=== PATIENT | male | born 1940 | race African-American/Black ===

== ENCOUNTER 2016-07-06 18:27 | Inpatient (IN) | payer SELFPAY ==
[~2016-07-06] VITALS: Ht 170.2 cm; Wt 86.2 kg
[2016-07-06 19:25] VITALS: BP 141/100
[2016-07-06] MEDS ORDERED: DiphenhydrAMINE 50mg/ml Inj IVP ONE ×3 (19:30→21:30)
[2016-07-06] MEDS ORDERED: Morphine Sulfate 2mg/ml Inj IVP ONE (19:30)
[2016-07-06] MEDS ORDERED: NKM (19:56)
[2016-07-06] MEDS ORDERED: Morphine Sulfate 4mg/ml Inj ONE (20:05)
[2016-07-06] MEDS ORDERED: Morphine Sulfate 4mg/ml Inj IVP ONE ×2 (20:15→21:30)
[2016-07-06 20:30] VITALS: BP 133/104
[2016-07-06 20:34] LABS: BASOPHILS % (AUTO) 1.9 % (0.0-2.0); EOSINOPHILS % (AUTO) 3.1 % (0.0-3.0); LYMPHOCYTES % (AUTO) 35.1 % (20.0-45.0); MEAN CORPUSCULAR HEMOGLOBIN 30.3 PG (27.0-31.0); MEAN CORPUSCULAR HGB CONC 34.5 G/DL (32.0-36.0); MEAN CORPUSCULAR VOLUME 88 FL (80-99); MEAN PLATELET VOLUME 6.2 FL (6.5-10.1); MONOCYTES % (AUTO) 3.1 % (1.0-10.0); NEUTROPHILS % (AUTO) 56.8 % (45.0-75.0); PLATELET COUNT 207 K/UL (150-450); RED BLOOD COUNT 4.61 M/UL (4.70-6.10); WHITE BLOOD COUNT 5.1 K/UL (4.8-10.8)
[2016-07-06 20:39] LABS: TROPONIN I < 0.30 ng/mL (<=0.30)
[2016-07-06 20:42] LABS: ALANINE AMINOTRANSFERASE 13 U/L (3-41); ALBUMIN/GLOBULIN RATIO 1.3 (1.0-2.7); ANION GAP 12 (5-15); ASPARTATE AMINO TRANSFERASE 16 U/L (5-40); CARBON DIOXIDE 28 mEQ/L (20-30); CHLORIDE 102 mEQ/L (98-107); CREATININE 1.1 mg/dL (0.7-1.2); HEMOLYSIS 3; POTASSIUM 3.7 mEQ/L (3.4-4.9); SODIUM 142 mEQ/L (135-145); TOTAL PROTEIN 6.2 g/dL (6.6-8.7)
[2016-07-06 20:53] LABS: CKMB < 1.5 ng/mL (< 6.7)
[2016-07-06] MEDS ORDERED: DuoNeb 0.5-3(2.5)mg/3ml neb HHN PRN (21:45)
[2016-07-06] MEDS ORDERED: Morphine Sulfate 2mg/ml Inj IVP PRN (21:45)
[2016-07-06] MEDS ORDERED: Enalaprilat 2.5mg/2ml Inj IV PRN (21:45)
[2016-07-06] MEDS ORDERED: Nitroglycerin Subl 0.4mg tab (Bottle Of 25) SL PRN (21:45)
[2016-07-06] MEDS ORDERED: Diltiazem 25mg/5ml IV PRN (21:45)
[2016-07-06] MEDS ORDERED: Miralax 17gm pkt ORAL PRN (21:45)
--- NOTE | 2016-07-06 22:39 | Emergency Room Report ---
History of Present Illness General Chief Complaint: Chest Pain Source: Patient Present Illness HPI 76-year-old male presents ED complaining of chest pain. States chest pain started today while at rest. Pain is midsternal, pressure-like, 8 out of 10. Nonradiating. Denies shortness of breath. Given aspirin and nitroglycerin by EMS with no resolution in pain. Patient states that he had FL years ago but is currently not taking medications. Does not have a PMD. Denies smoking or drug use. No other aggravating or relieving factors. Denies any other associated symptoms Allergies: Coded Allergies: IBUPROFEN (Verified Allergy, Severe, Rash, 07/06/16) KETOROLAC (Verified Allergy, Severe, Hives, 07/06/16) Uncoded Allergies: IV DYE (Allergy, Severe, Rash, 07/06/16) Patient History Past Medical History: FL, CAD Past Surgical History: none Pertinent Family History: none Social History: Denies: alcohol use, drug use, smoking Immunizations: UTD Reviewed Nursing Documentation: PMH: Agreed, PSxH: Agreed Nursing Documentation-PMH Past Medical History: No History, Except For Hx Cardiac Problems: Yes - FL 1969 and 1982 Review of Systems All Other Systems: negative except mentioned in HPI Physical Exam Vital Signs Date Time Temp Pulse Resp B/P Pulse Ox O2 Delivery O2 Flow Rate FiO2 07/06/16 18:22 98.8 92 18 143/93 98 Room Air Sp02 EP Interpretation: reviewed, normal General Appearance: no apparent distress, alert, GCS 15, non-toxic Head: normocephalic, atraumatic Eyes: bilateral eye PERRL, bilateral eye normal inspection ENT: hearing grossly normal, normal pharynx, no angioedema, normal voice Neck: full range of motion, supple/symm/no masses Respiratory: chest non-tender, lungs clear, normal breath sounds, speaking full sentences Cardiovascular #1: regular rate, rhythm, no edema Cardiovascular #2: 2+ carotid (R), 2+ carotid (L), 2+ radial (R), 2+ radial (L) , 2+ dorsalis pedis (R), 2+ dorsalis pedis (L) Gastrointestinal: normal bowel sounds, non tender, soft, non-distended, no guarding, no rebound Rectal: deferred Genitourinary: normal inspection, no CVA tenderness Musculoskeletal: back normal, gait/station normal, normal range of motion, non- tender Neurologic: alert, oriented x3, responsive, motor strength/tone normal, sensory intact, speech normal Psychiatric: judgement/insight normal, memory normal, mood/affect normal, no suicidal/homicidal ideation Reflexes: 3+ bicep (R), 3+ bicep (L), 3+ tricep (R), 3+ tricep (L), 3+ knee (R) , 3+ knee (L) Skin: normal color, no rash, warm/dry, well hydrated Lymphatic: no adenopathy Medical Decision Making Diagnostic Impression: Primary Impression: ACS (acute coronary syndrome) ER Course Hospital Course 76-year-old male presents ED complaining of chest pain Differential diagnoses include: FL/unstable angina, contusion, muscle strain, PTX, rib fracture Clinical course Patient placed on stretcher. on lace pinner. After initial history and physical I ordered labs, EKG, chest x-ray, morphine labs reviewed- no leukocytosis, hb/hct stable, electrolytes ok, trop negative EKG - NSR, no acute ischemic changes Chest x-ray- no acute process Case discussed with Dr. Neal and he agreed to accept the patient to his service for further care and support I. I feel this is a highly complex case requiring extensive working including EKG/Rhythm strip, Xray/CT/US, Blood/urine lab work, repeat exams while in ED, and administration of strong opiates/narcotics for pain control, admission to hospital or close patient follow up. Diagnosis - ACS admitted to telemetry in serious condition Labs Test 07/06/16 18:45 White Blood Count 5.1 K/UL (4.8-10.8) Red Blood Count 4.61 M/UL (4.70-6.10) Hemoglobin 14.0 G/DL (14.2-18.0) Hematocrit 40.6 % (42.0-52.0) Mean Corpuscular Volume 88 FL (80-99) Mean Corpuscular Hemoglobin 30.3 PG (27.0-31.0) Mean Corpuscular Hemoglobin Concent 34.5 G/DL (32.0-36.0) Red Cell Distribution Width 14.0 % (11.6-14.8) Platelet Count 207 K/UL (150-450) Mean Platelet Volume 6.2 FL (6.5-10.1) Neutrophils (%) (Auto) 56.8 % (45.0-75.0) Lymphocytes (%) (Auto) 35.1 % (20.0-45.0) Monocytes (%) (Auto) 3.1 % (1.0-10.0) Eosinophils (%) (Auto) 3.1 % (0.0-3.0) Basophils (%) (Auto) 1.9 % (0.0-2.0) Sodium Level 142 mEQ/L (135-145) Potassium Level 3.7 mEQ/L (3.4-4.9) Chloride Level 102 mEQ/L (98-107) Carbon Dioxide Level 28 mEQ/L (20-30) Anion Gap 12 (5-15) Blood Urea Nitrogen 12 mg/dL (7-23) Creatinine 1.1 mg/dL (0.7-1.2) Estimat Glomerular Filtration Rate mL/min (>60) Glucose Level 116 mg/dL (74-106) Calcium Level 10.0 mg/dL (8.6-10.2) Total Bilirubin 0.3 mg/dL (0.0-1.2) Aspartate Amino Transf (AST/SGOT) 16 U/L (5-40) Alanine Aminotransferase (ALT/SGPT) 13 U/L (3-41) Alkaline Phosphatase 82 U/L (40-129) Total Creatine Kinase 168 U/L (38-174) Creatine Kinase MB < 1.5 ng/mL (< 6.7) Creatine Kinase MB Relative Index Troponin I < 0.30 ng/mL (<=0.30) Pro-B-Type Natriuretic Peptide 15 pg/mL (0-450) Total Protein 6.2 g/dL (6.6-8.7) Albumin 3.6 g/dL (3.5-5.2) Globulin 2.6 g/dL Albumin/Globulin Ratio 1.3 (1.0-2.7) EKG Diagnostic Results Rate: normal Rhythm: NSR ST Segments: no acute changes ASA given to the pt in ED: No - given by ems Rhythm Strip Diag. Results EP Interpretation: yes Rhythm: NSR, no PVC's, no ectopy Chest X-Ray Diagnostic Results EP Interpretation: Yes Findings: no consolidation, no effusion, no pneumothorax, no acute cardiopulmonary disease Number of Views: 1 Last Vital Signs Date Time Temp Pulse Resp B/P Pulse Ox O2 Delivery O2 Flow Rate FiO2 07/06/16 20:55 98.8 07/06/16 20:30 73 13 133/104 100 Room Air Status: improved Disposition: ADMITTED INPATIENT Condition: Serious Referrals: NOT CHOSEN DENILSON/,REFERRING (PCP) DALTON AYALA M.D. Jul 06, 2016 22:39
[2016-07-06] MEDS: Heparin 5000 units/ml inj SUBQ SCH (23:15)
[2016-07-06] MEDS: Morphine Sulfate 2mg/ml Inj IVP PRN (23:51)
[2016-07-07] VITALS: BP 153/99
[2016-07-07 04:00] VITALS: BP 143/100
[2016-07-07] MEDS: Morphine Sulfate 2mg/ml Inj IVP PRN ×5 (04:03→20:49)
[2016-07-07] MEDS: DiphenhydrAMINE 50mg/ml Inj IVP PRN ×5 (04:03→21:05)
[2016-07-07 07:46] VITALS: BP 148/77
[2016-07-07 08:06] LABS: BASOPHILS % (AUTO) 1.4 % (0.0-2.0); EOSINOPHILS % (AUTO) 3.9 % (0.0-3.0); MEAN CORPUSCULAR HGB CONC 33.1 G/DL (32.0-36.0); MEAN CORPUSCULAR VOLUME 88 FL (80-99); MEAN PLATELET VOLUME 7.2 FL (6.5-10.1); MONOCYTES % (AUTO) 5.5 % (1.0-10.0); NEUTROPHILS % (AUTO) 49.3 % (45.0-75.0); PLATELET COUNT 221 K/UL (150-450); RED BLOOD COUNT 4.53 M/UL (4.70-6.10); WHITE BLOOD COUNT 6.2 K/UL (4.8-10.8)
[2016-07-07 08:07] LABS: CHOLESTEROL 108 mg/dL (< 200); CHOLESTEROL/HDL RATIO 1.9 (3.3-4.4); CRP QUANT < 0.3 mg/dL (< 0.5); HEMOLYSIS 0; LDL CHOLESTEROL (CALC.) 32 mg/dL (60-99)
[2016-07-07 08:09] LABS: TROPONIN I < 0.30 ng/mL (<=0.30)
[2016-07-07 08:13] LABS: PROTHROMBIN TIME 10.3 SEC (9.30-11.50)
[2016-07-07] MEDS: Heparin 5000 units/ml inj SUBQ SCH ×2 (08:14→20:46)
[2016-07-07 11:26] VITALS: BP 152/95
--- NOTE | 2016-07-07 13:13 | Cardiology Progress Note ---
Assessment/Plan Assessment/Plan persistent cp more than hours with neg trop htn report hs of mi and stent htn bp meds stress echo home if neg Objective Last 24 Hour Vital Signs Date Time Temp Pulse Resp B/P Pulse Ox O2 Delivery O2 Flow Rate FiO2 07/07/16 11:26 97.9 84 20 152/95 97 Room Air 07/07/16 08:00 78 07/07/16 07:46 97.3 92 20 148/77 98 Room Air 07/07/16 04:00 97.6 96 19 143/100 98 Room Air 07/07/16 04:00 92 07/07/16 00:00 98.2 93 21 153/99 95 Room Air 07/07/16 00:00 95 07/06/16 23:05 93 07/06/16 22:40 82 20 135/90 100 Room Air 07/06/16 22:30 98.8 07/06/16 20:55 98.8 07/06/16 20:30 73 13 133/104 100 Room Air 07/06/16 20:10 98.8 07/06/16 19:25 98.0 69 19 141/100 100 Room Air 07/06/16 19:25 80 19 Room Air 07/06/16 18:22 98.8 92 18 143/93 98 Room Air Intake and Output 07/06/16 07/07/16 19:00 07:00 Intake Total 800 ml Balance 800 ml Intake Oral 300 ml IV Total 500 ml Laboratory Tests Test 07/06/16 18:45 07/07/16 06:45 White Blood Count 5.1 K/UL (4.8-10.8) 6.2 K/UL (4.8-10.8) Red Blood Count 4.61 M/UL (4.70-6.10) L 4.53 M/UL (4.70-6.10) L Hemoglobin 14.0 G/DL (14.2-18.0) L 13.1 G/DL (14.2-18.0) L Hematocrit 40.6 % (42.0-52.0) L 39.7 % (42.0-52.0) L Mean Corpuscular Volume 88 FL (80-99) 88 FL (80-99) Mean Corpuscular Hemoglobin 30.3 PG (27.0-31.0) 29.0 PG (27.0-31.0) Mean Corpuscular Hemoglobin Concent 34.5 G/DL (32.0-36.0) 33.1 G/DL (32.0-36.0) Red Cell Distribution Width 14.0 % (11.6-14.8) 14.0 % (11.6-14.8) Platelet Count 207 K/UL (150-450) 221 K/UL (150-450) Mean Platelet Volume 6.2 FL (6.5-10.1) L 7.2 FL (6.5-10.1) Neutrophils (%) (Auto) 56.8 % (45.0-75.0) 49.3 % (45.0-75.0) Lymphocytes (%) (Auto) 35.1 % (20.0-45.0) 40.0 % (20.0-45.0) Monocytes (%) (Auto) 3.1 % (1.0-10.0) 5.5 % (1.0-10.0) Eosinophils (%) (Auto) 3.1 % (0.0-3.0) H 3.9 % (0.0-3.0) H Basophils (%) (Auto) 1.9 % (0.0-2.0) 1.4 % (0.0-2.0) Sodium Level 142 mEQ/L (135-145) Potassium Level 3.7 mEQ/L (3.4-4.9) Chloride Level 102 mEQ/L (98-107) Carbon Dioxide Level 28 mEQ/L (20-30) Anion Gap 12 (5-15) Blood Urea Nitrogen 12 mg/dL (7-23) Creatinine 1.1 mg/dL (0.7-1.2) Estimat Glomerular Filtration Rate mL/min (>60) Glucose Level 116 mg/dL (74-106) H Calcium Level 10.0 mg/dL (8.6-10.2) Total Bilirubin 0.3 mg/dL (0.0-1.2) Aspartate Amino Transf (AST/SGOT) 16 U/L (5-40) Alanine Aminotransferase (ALT/SGPT) 13 U/L (3-41) Alkaline Phosphatase 82 U/L (40-129) Total Creatine Kinase 168 U/L (38-174) Creatine Kinase MB < 1.5 ng/mL (< 6.7) Creatine Kinase MB Relative Index Troponin I < 0.30 ng/mL (<=0.30) < 0.30 ng/mL (<=0.30) Pro-B-Type Natriuretic Peptide 15 pg/mL (0-450) Total Protein 6.2 g/dL (6.6-8.7) L Albumin 3.6 g/dL (3.5-5.2) Globulin 2.6 g/dL Albumin/Globulin Ratio 1.3 (1.0-2.7) Prothrombin Time 10.3 SEC (9.30-11.50) Prothromb Time International Ratio 1.0 (0.9-1.1) Activated Partial Thromboplast Time 24 SEC (23-33) C-Reactive Protein, Quantitative < 0.3 mg/dL (< 0.5) Triglycerides Level 97 mg/dL (< 150) Cholesterol Level 108 mg/dL (< 200) LDL Cholesterol 32 mg/dL (60-99) L HDL Cholesterol 57 mg/dL (> 60) Cholesterol/HDL Ratio 1.9 (3.3-4.4) L Thyroid Stimulating Hormone (TSH) 0.840 uIU/mL (0.300-4.500) LIBORIO CHRISTIAN Jul 07, 2016 13:13
--- NOTE | 2016-07-07 13:27 | History and Physical ---
History of Present Illness General Date patient seen: Jul 07, 2016 Reason for Hospitalization: Chest Pain Present Illness HPI 76-year-old male with hx of CAD, NE in the past presented to ED complaining of chest pain started yesterday while at rest. Pain is midsternal, pressure- like, 8 out of 10. Nonradiating. Denies shortness of breath. Given aspirin and nitroglycerin by EMS with no resolution in pain. He is admitted to telemetry to rule out ACS. Allergies: Coded Allergies: IBUPROFEN (Verified Allergy, Severe, Rash, 07/06/16) KETOROLAC (Verified Allergy, Severe, Hives, 07/06/16) Uncoded Allergies: IV DYE (Allergy, Severe, Rash, 07/06/16) Medication History Scheduled No Known Medications* (NKM - No Known Medications*), 0 ., (Reported) Patient History Healthcare decision maker Resuscitation status Full Code Advanced Directive on File Past Medical/Surgical History Past Medical/Surgical History: (1) CAD (coronary artery disease) Review of Systems All Other Systems: negative except mentioned in HPI Physical Exam General Appearance: WD/WN Lines, tubes and drains: peripheral Neck: non-tender, normal alignment Respiratory/Chest: chest wall non-tender, lungs clear Cardiovascular/Chest: normal peripheral pulses Last 24 Hour Vital Signs Date Time Temp Pulse Resp B/P Pulse Ox O2 Delivery O2 Flow Rate FiO2 07/07/16 11:26 97.9 84 20 152/95 97 Room Air 07/07/16 08:00 78 07/07/16 07:46 97.3 92 20 148/77 98 Room Air 07/07/16 04:00 97.6 96 19 143/100 98 Room Air 07/07/16 04:00 92 07/07/16 00:00 98.2 93 21 153/99 95 Room Air 07/07/16 00:00 95 07/06/16 23:05 93 07/06/16 22:40 82 20 135/90 100 Room Air 07/06/16 22:30 98.8 07/06/16 20:55 98.8 07/06/16 20:30 73 13 133/104 100 Room Air 07/06/16 20:10 98.8 07/06/16 19:25 98.0 69 19 141/100 100 Room Air 07/06/16 19:25 80 19 Room Air 07/06/16 18:22 98.8 92 18 143/93 98 Room Air Intake and Output 07/06/16 07/07/16 19:00 07:00 Intake Total 800 ml Balance 800 ml Intake Oral 300 ml IV Total 500 ml Laboratory Tests Test 07/06/16 18:45 07/07/16 06:45 White Blood Count 5.1 K/UL (4.8-10.8) 6.2 K/UL (4.8-10.8) Red Blood Count 4.61 M/UL (4.70-6.10) L 4.53 M/UL (4.70-6.10) L Hemoglobin 14.0 G/DL (14.2-18.0) L 13.1 G/DL (14.2-18.0) L Hematocrit 40.6 % (42.0-52.0) L 39.7 % (42.0-52.0) L Mean Corpuscular Volume 88 FL (80-99) 88 FL (80-99) Mean Corpuscular Hemoglobin 30.3 PG (27.0-31.0) 29.0 PG (27.0-31.0) Mean Corpuscular Hemoglobin Concent 34.5 G/DL (32.0-36.0) 33.1 G/DL (32.0-36.0) Red Cell Distribution Width 14.0 % (11.6-14.8) 14.0 % (11.6-14.8) Platelet Count 207 K/UL (150-450) 221 K/UL (150-450) Mean Platelet Volume 6.2 FL (6.5-10.1) L 7.2 FL (6.5-10.1) Neutrophils (%) (Auto) 56.8 % (45.0-75.0) 49.3 % (45.0-75.0) Lymphocytes (%) (Auto) 35.1 % (20.0-45.0) 40.0 % (20.0-45.0) Monocytes (%) (Auto) 3.1 % (1.0-10.0) 5.5 % (1.0-10.0) Eosinophils (%) (Auto) 3.1 % (0.0-3.0) H 3.9 % (0.0-3.0) H Basophils (%) (Auto) 1.9 % (0.0-2.0) 1.4 % (0.0-2.0) Sodium Level 142 mEQ/L (135-145) Potassium Level 3.7 mEQ/L (3.4-4.9) Chloride Level 102 mEQ/L (98-107) Carbon Dioxide Level 28 mEQ/L (20-30) Anion Gap 12 (5-15) Blood Urea Nitrogen 12 mg/dL (7-23) Creatinine 1.1 mg/dL (0.7-1.2) Estimat Glomerular Filtration Rate mL/min (>60) Glucose Level 116 mg/dL (74-106) H Calcium Level 10.0 mg/dL (8.6-10.2) Total Bilirubin 0.3 mg/dL (0.0-1.2) Aspartate Amino Transf (AST/SGOT) 16 U/L (5-40) Alanine Aminotransferase (ALT/SGPT) 13 U/L (3-41) Alkaline Phosphatase 82 U/L (40-129) Total Creatine Kinase 168 U/L (38-174) Creatine Kinase MB < 1.5 ng/mL (< 6.7) Creatine Kinase MB Relative Index Troponin I < 0.30 ng/mL (<=0.30) < 0.30 ng/mL (<=0.30) Pro-B-Type Natriuretic Peptide 15 pg/mL (0-450) Total Protein 6.2 g/dL (6.6-8.7) L Albumin 3.6 g/dL (3.5-5.2) Globulin 2.6 g/dL Albumin/Globulin Ratio 1.3 (1.0-2.7) Prothrombin Time 10.3 SEC (9.30-11.50) Prothromb Time International Ratio 1.0 (0.9-1.1) Activated Partial Thromboplast Time 24 SEC (23-33) C-Reactive Protein, Quantitative < 0.3 mg/dL (< 0.5) Triglycerides Level 97 mg/dL (< 150) Cholesterol Level 108 mg/dL (< 200) LDL Cholesterol 32 mg/dL (60-99) L HDL Cholesterol 57 mg/dL (> 60) Cholesterol/HDL Ratio 1.9 (3.3-4.4) L Thyroid Stimulating Hormone (TSH) 0.840 uIU/mL (0.300-4.500) Height (Feet): 5 Height (Inches): 7.00 Weight (Pounds): 190 Medications Current Medications Medications (Trade) Dose Ordered Sig/Nury Route PRN Reason Start Time Stop Time Status Last Admin Dose Admin Acetaminophen (Tylenol) 650 mg Q4H PRN ORAL FEVER 07/06/16 21:45 08/05/16 21:44 Albuterol/ Ipratropium (DuoNeb 0.5-3(2.5)mg/3ml) 3 ml Q4H PRN HHN Shortness of Breath 07/06/16 21:45 07/11/16 21:44 Amlodipine Besylate (Norvasc) 5 mg DAILY ORAL 07/07/16 13:15 08/06/16 13:14 UNV Diltiazem HCl (Cardizem) 10 mg EVERY HOUR PRN IV heart rate more than 120, 07/06/16 21:45 08/05/16 21:44 Diphenhydramine HCl (Benadryl) 25 mg Q4H PRN IVP Itching 07/06/16 23:30 08/05/16 23:29 07/07/16 12:19 Enalaprilat (Vasotec) 2.5 mg Q6H PRN IV sbp more than 160 07/06/16 21:45 08/05/16 21:44 Heparin Sodium (Porcine) (Heparin 5000 units/ml) 5,000 units EVERY 12 HOURS SUBQ 07/06/16 23:00 08/05/16 22:59 07/07/16 08:14 Morphine Sulfate (Morphine Sulfate) 4 mg Q4H PRN IVP severe Pain (Pain Scale 7-10) 07/06/16 23:36 07/13/16 23:35 07/07/16 12:19 Nitroglycerin (Ntg) 0.4 mg Every 5 Minutes PRN SL Prn Chest Pain 07/06/16 21:45 08/05/16 21:44 Ondansetron HCl (Zofran) 4 mg Q6H PRN IVP Nausea & Vomiting 07/06/16 21:45 08/05/16 21:44 Pantoprazole (Protonix) 40 mg DAILY ORAL 07/07/16 09:00 08/06/16 08:59 Polyethylene Glycol (Miralax) 17 gm DAILYPRN PRN ORAL Constipation 07/06/16 21:45 08/05/16 21:44 Temazepam (Restoril) 15 mg HSPRN PRN ORAL Insomnia 07/06/16 21:45 07/13/16 21:44 Assessment/Plan Problem List: (1) ACS (acute coronary syndrome) ICD Codes: I24.9 - Acute ischemic heart disease, unspecified SNOMED: 886831568 (2) CAD (coronary artery disease) ICD Codes: I25.10 - Atherosclerotic heart disease of [place] coronary artery without angina pectoris SNOMED: 99258192 (3) Costochondritis ICD Codes: M94.0 - Chondrocostal junction syndrome [[place]] SNOMED: 84230774 (4) GERD (gastroesophageal reflux disease) ICD Codes: K21.9 - Gastro-esophageal reflux disease without esophagitis SNOMED: 761345644 Assessment/Plan serial ekg, troponin, echo stress study. GO BONILLA Jul 07, 2016 13:27
--- NOTE | 2016-07-07 13:52 | Diagnostic Imaging Report ---
Indication: Chest pain Technique: One view of the chest Comparison: none Findings: No acute infiltrates, effusions, or congestion. Tortuous calcified aorta. Normal heart size. Upper mediastinum unremarkable. Impression: No acute process.
[2016-07-07 15:21] VITALS: BP 154/101
[2016-07-07 20:00] VITALS: BP 145/101
--- NOTE | 2016-07-07 21:38 | Consultation ---
DATE OF CONSULTATION: 07/07/2016 CARDIOLOGY CONSULTATION CONSULTING PHYSICIAN: Pierre Houston M.D. REFERRING PHYSICIAN: Wendy Neal M.D. REASON FOR REFERRAL: Chest pain. HISTORY OF PRESENT ILLNESS: This is a 76-year-old gentleman, who presented to the hospital because of chest pain. He tells me that he has been himself that he started having chest pain approximately two months ago intermittently when he was just picking up some stuff on floor and things of that sort. However since yesterday afternoon, he has had persistent chest pain and presented to the hospital. He thinks it is similar to the pain that he has had on prior occasions when he had the two prior heart attacks, the last one being in 1982 for which he ended up getting a stent. He has not been hospitalized or he has not been evaluated anywhere for the past few years. He has had some dyspnea on exertion. There is a two-pillow usage. No dizziness or lightheadedness. No heart pounding or palpitations. The pain has been persistent since yesterday, although morphine makes him a little bit better, but does not take it away completely and the pain continues to persist. He states he has not been hospitalized in any other hospitals for this evaluation either. PAST MEDICAL HISTORY: Positive for high blood pressure and high cholesterol and heart attacks. MEDICATIONS: His medications at home are unknown as he has not been taking anything according to himself. He has not seen a physician from number of years. ALLERGIES: He is allergic to ibuprofen, intravenous dye, "contrast dye," and Ketoralac. SOCIAL HISTORY: He smokes two packs per day. He does not drink or use drugs he says. PHYSICAL EXAMINATION: GENERAL: Shows to be elderly gentleman, in no apparent respiratory distress. Initially, he was walking from the bathroom to the bed, does not appear to be in any kind of respiratory distress. VITAL SIGNS: His vital signs have been anywhere between 148/77 to 153/99. NECK: Supple. No jugular venous distention. LUNGS: Clear to auscultation and percussion. CARDIAC: S1 is normal. S2 is normal. Regular rate and rhythm. No heaves, thrills, gallops, or rubs are noted. ABDOMEN: Soft and nontender. Positive bowel sounds. EXTREMITIES: There is no clubbing, cyanosis, nor edema. NEUROLOGIC: He is awake, alert, and responsive. LABORATORY VALUES: White count of 6.3, hemoglobin 13.1, and a platelet count of 221,000. His troponins on separate occasions are negative today and yesterday. Sodium 140, potassium 3.7, chloride 102, bicarbonate 28, BUN 12, creatinine 1.1, and glucose of 116. Albumin of 3.6. Total cholesterol of 108 with a LDL of 32 and HDL of 57. TSH of 0.84. Coags, INR 1.0 and PTT of 24. ASSESSMENT: 1. Reported chest pain with no evidence of myonecrosis despite approximately 18 hours of chest pain. 2. Reported history of coronary disease and stent placement. 3. Multiple drug intolerances. PLAN: Dr. Neal, this patient was seen in cardiac consultation. The patient's EKG are not significant abnormality suggesting ischemic burden. The patient does not have any cardiac enzyme abnormalities despite 18 hours of chest pain. He has not identified any relieving or exacerbating factors except for some improvement in the pain because of intravenous morphine administration, which he does not like and wants to change to other medications. Unlikely that the pain is ischemic in origin, however because of prior history of coronary disease, he should undergo a stress testing. An echocardiogram has been ordered. If the results of that are normal, the patient may be discharged home. Pierre Houston M.D. DR: JOHNSON JOB#: [id number] CC:
[2016-07-08] VITALS: BP 142/100
[2016-07-08] MEDS: Morphine Sulfate 2mg/ml Inj IVP PRN (02:19)
[2016-07-08] MEDS: DiphenhydrAMINE 50mg/ml Inj IVP PRN ×5 (02:23→20:55)
[2016-07-08 08:00] VITALS: BP 140/106
[2016-07-08] MEDS: HYDROmorphone 1mg/ml Carpuject IVP PRN ×4 (08:08→20:55)
[2016-07-08] MEDS: Heparin 5000 units/ml inj SUBQ SCH ×2 (08:08→21:00)
[2016-07-08 09:10] LABS: TROPONIN I < 0.30 ng/mL (<=0.30)
--- NOTE | 2016-07-08 09:19 | Cardiology Report ---
APPROVED REPORT EXAM: Two-dimensional and M-mode echocardiogram with Doppler and color Doppler. INDICATION Left ventricular function Technically difficult study due to poor acoustic windows. Normal left ventricular chamber size, systolic function and wall motion. Left ventricular ejection fraction estimated to be 60-65 %. Mild left ventricular hypertrophy. No evidence of pericardial fat or effusion. All other cardiac chamber sizes are within normal limits. Focal aortic valve sclerosis with adequate cusp excursion Thickened mitral valve leaflets with normal excursion. Mild mitral annulus and aortic root calcification. Pulmonic valve not well visualized. Normal tricuspid valve structure. IVC is normal in size with physiologic collapse. A color flow and spectral Doppler study was performed and revealed: No aortic regurgitation. No mitral regurgitation. Left ventricular diastolic dysfunction grade 1. No tricuspid regurgitation.
[2016-07-08 12:00] VITALS: BP 139/103
--- NOTE | 2016-07-08 12:54 | Pulmonology Progress Note ---
Assessment/Plan Problems: (1) ACS (acute coronary syndrome) (2) CAD (coronary artery disease) (3) Costochondritis (4) GERD (gastroesophageal reflux disease) Assessment/Plan for stress testing today monitor bp symptomatic treatment Subjective ROS Limited/Unobtainable: No Interval Events: for stress test today Allergies: Coded Allergies: IBUPROFEN (Verified Allergy, Severe, Rash, 07/06/16) KETOROLAC (Verified Allergy, Severe, Hives, 07/06/16) Uncoded Allergies: IV DYE (Allergy, Severe, Rash, 07/06/16) Objective Last 24 Hour Vital Signs Date Time Temp Pulse Resp B/P Pulse Ox O2 Delivery O2 Flow Rate FiO2 07/08/16 08:59 90 140/106 07/08/16 08:00 98.2 90 20 140/106 96 Room Air 07/08/16 07:55 81 18 Room Air 07/08/16 00:27 85 07/08/16 00:00 97.5 89 18 142/100 97 Room Air 07/07/16 20:20 102 18 Room Air 07/07/16 20:00 98.1 95 18 145/101 98 Room Air 07/07/16 20:00 96 07/07/16 16:00 99 07/07/16 15:21 97.7 102 20 154/101 98 Room Air 07/07/16 14:10 84 152/95 Intake and Output 07/07/16 07/08/16 19:00 07:00 Intake Total 910 ml Balance 910 ml Intake Oral 910 ml # Voids 5 1 # Bowel Movements 2 General Appearance: WD/WN HEENT: normocephalic, atraumatic Respiratory/Chest: chest wall non-tender, lungs clear Cardiovascular: normal peripheral pulses, normal rate Abdomen: normal bowel sounds, soft, non tender Extremities: no cyanosis 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 Laboratory Tests 07/08/16 08:30: Troponin I < 0.30 Current Medications Medications (Trade) Dose Ordered Sig/Nury Route PRN Reason Start Time Stop Time Status Last Admin Dose Admin Acetaminophen (Tylenol) 650 mg Q4H PRN ORAL FEVER 07/06/16 21:45 08/05/16 21:44 Albuterol/ Ipratropium (DuoNeb 0.5-3(2.5)mg/3ml) 3 ml Q4H PRN HHN Shortness of Breath 07/06/16 21:45 07/11/16 21:44 Amlodipine Besylate (Norvasc) 5 mg DAILY ORAL 07/07/16 14:00 08/06/16 13:59 07/08/16 08:59 Diltiazem HCl (Cardizem) 10 mg EVERY HOUR PRN IV heart rate more than 120, 07/06/16 21:45 08/05/16 21:44 Diphenhydramine HCl (Benadryl) 25 mg Q4H PRN IVP Itching 07/06/16 23:30 08/05/16 23:29 07/08/16 12:14 Enalaprilat (Vasotec) 2.5 mg Q6H PRN IV sbp more than 160 07/06/16 21:45 08/05/16 21:44 Heparin Sodium (Porcine) (Heparin 5000 units/ml) 5,000 units EVERY 12 HOURS SUBQ 07/06/16 23:00 08/05/16 22:59 07/08/16 08:08 Hydromorphone HCl (Dilaudid) 1 mg Q3H PRN IVP For Pain 07/08/16 05:45 07/15/16 05:44 07/08/16 12:14 Nitroglycerin (Ntg) 0.4 mg Every 5 Minutes PRN SL Prn Chest Pain 07/06/16 21:45 08/05/16 21:44 Ondansetron HCl (Zofran) 4 mg Q6H PRN IVP Nausea & Vomiting 07/06/16 21:45 08/05/16 21:44 Pantoprazole (Protonix) 40 mg DAILY ORAL 07/07/16 09:00 08/06/16 08:59 07/08/16 08:07 Polyethylene Glycol (Miralax) 17 gm DAILYPRN PRN ORAL Constipation 07/06/16 21:45 08/05/16 21:44 Temazepam (Restoril) 15 mg HSPRN PRN ORAL Insomnia 07/06/16 21:45 07/13/16 21:44 GO BONILLA Jul 08, 2016 12:54
[2016-07-08 16:00] VITALS: BP 147/93
[2016-07-08 20:00] VITALS: BP 131/92
--- NOTE | 2016-07-08 20:10 | Cardiology Progress Note ---
Assessment/Plan Assessment/Plan persistent cp more than hours with neg trop unconfirmed report hs of mi and stent htn bp meds increse doese he co pain gettign worse yet is walkign in halls !!!!! all trop neg was not able to complete test hodan order adenosine cardiolite stress test for tomorrow if he refused or is not able to perform would dc home and have him fu with his md he is asking for more diluadid i doubt hsi pain is cardiac ischemic pain Subjective Cardiovascular: Denies: chest pain - gets worse with waking Respiratory: Denies: shortness of breath Gastrointestinal/Abdominal: Denies: abdominal pain Genitourinary: Denies: burning Subjective want to have dilaudid increased to every 3 hours ! Objective Last 24 Hour Vital Signs Date Time Temp Pulse Resp B/P Pulse Ox O2 Delivery O2 Flow Rate FiO2 07/08/16 19:32 109 18 Room Air 07/08/16 16:00 98.2 91 20 147/93 96 Room Air 07/08/16 16:00 100 07/08/16 12:00 98.2 67 16 139/103 97 Room Air 07/08/16 12:00 90 07/08/16 08:59 90 140/106 07/08/16 08:00 82 07/08/16 08:00 98.2 90 20 140/106 96 Room Air 07/08/16 07:55 81 18 Room Air 07/08/16 00:27 85 07/08/16 00:00 97.5 89 18 142/100 97 Room Air 07/07/16 20:20 102 18 Room Air General Appearance: no apparent distress - walkin in halls !!!! Neck: no JVD Cardiovascular: normal rate, regular rhythm Respiratory/Chest: lungs clear, normal breath sounds Abdomen: normal bowel sounds, non tender, soft Extremities: no swelling Intake and Output 07/07/16 07/08/16 19:00 07:00 Intake Total 910 ml Balance 910 ml Intake Oral 910 ml # Voids 5 1 # Bowel Movements 2 Laboratory Tests Test 07/08/16 08:30 Troponin I < 0.30 ng/mL (<=0.30) LIBORIO CHRISTIAN Jul 08, 2016 20:10
[2016-07-09] VITALS: BP 150/88
[2016-07-09] MEDS: DiphenhydrAMINE 50mg/ml Inj IVP PRN ×3 (01:28→11:30)
[2016-07-09] MEDS: HYDROmorphone 1mg/ml Carpuject IVP PRN ×3 (01:29→11:28)
[2016-07-09 04:30] VITALS: BP 148/108
[2016-07-09 07:53] VITALS: BP 145/102
[2016-07-09] MEDS: Heparin 5000 units/ml inj SUBQ SCH (09:00)
[2016-07-09] MEDS ORDERED: Tubing IV Secondary IV ONE (09:47)
[2016-07-09 11:16] VITALS: BP 140/90
--- NOTE | 2016-07-09 12:58 | Pulmonology Progress Note ---
Assessment/Plan Problems: (1) ACS (acute coronary syndrome) (2) CAD (coronary artery disease) (3) Costochondritis (4) GERD (gastroesophageal reflux disease) Assessment/Plan for stress testing was interrupted yesterday. and today he refused ok to dc home with f/u with primary physician Subjective Constitutional: Reports: no symptoms HEENT: Repors: no symptoms Respiratory: Reports: no symptoms Allergies: Coded Allergies: IBUPROFEN (Verified Allergy, Severe, Rash, 07/06/16) KETOROLAC (Verified Allergy, Severe, Hives, 07/06/16) Uncoded Allergies: IV DYE (Allergy, Severe, Rash, 07/06/16) Objective Last 24 Hour Vital Signs Date Time Temp Pulse Resp B/P Pulse Ox O2 Delivery O2 Flow Rate FiO2 07/09/16 11:16 97.9 102 20 140/90 98 Room Air 07/09/16 08:59 95 145/102 07/09/16 08:24 95 18 Room Air 07/09/16 07:53 97.7 95 20 145/102 96 Room Air 07/09/16 04:30 97.9 100 20 148/108 98 Room Air 07/09/16 04:00 95 07/09/16 00:00 87 07/09/16 00:00 97.0 99 20 150/88 99 Room Air 07/08/16 20:55 109 147/93 07/08/16 20:00 97.9 100 20 131/92 98 Room Air 07/08/16 20:00 110 07/08/16 19:32 109 18 Room Air 07/08/16 16:00 98.2 91 20 147/93 96 Room Air 07/08/16 16:00 100 Intake and Output 07/08/16 07/09/16 19:00 07:00 Intake Total 640 ml Balance 640 ml Intake Oral 640 ml # Voids 2 1 General Appearance: WD/WN Respiratory/Chest: chest wall non-tender, normal breath sounds Cardiovascular: normal peripheral pulses, normal rate Abdomen: normal bowel sounds, soft, non tender Genitourinary: normal external genitalia Extremities: no clubbing Skin: no rash Current Medications Medications (Trade) Dose Ordered Sig/Nury Route PRN Reason Start Time Stop Time Status Last Admin Dose Admin Acetaminophen (Tylenol) 650 mg Q4H PRN ORAL FEVER 07/06/16 21:45 08/05/16 21:44 Albuterol/ Ipratropium (DuoNeb 0.5-3(2.5)mg/3ml) 3 ml Q4H PRN HHN Shortness of Breath 07/06/16 21:45 07/11/16 21:44 Amlodipine Besylate (Norvasc) 5 mg BID ORAL 07/09/16 09:00 08/08/16 08:59 07/09/16 08:59 Diltiazem HCl (Cardizem) 10 mg EVERY HOUR PRN IV heart rate more than 120, 07/06/16 21:45 08/05/16 21:44 Diphenhydramine HCl (Benadryl) 25 mg Q4H PRN IVP Itching 07/06/16 23:30 08/05/16 23:29 07/09/16 11:30 Enalaprilat (Vasotec) 2.5 mg Q6H PRN IV sbp more than 160 07/06/16 21:45 08/05/16 21:44 Heparin Sodium (Porcine) (Heparin 5000 units/ml) 5,000 units EVERY 12 HOURS SUBQ 07/06/16 23:00 08/05/16 22:59 07/09/16 09:00 Hydromorphone HCl (Dilaudid) 1 mg Q3H PRN IVP For Pain 07/08/16 05:45 07/15/16 05:44 07/09/16 11:28 Nitroglycerin (Ntg) 0.4 mg Every 5 Minutes PRN SL Prn Chest Pain 07/06/16 21:45 08/05/16 21:44 Ondansetron HCl (Zofran) 4 mg Q6H PRN IVP Nausea & Vomiting 07/06/16 21:45 08/05/16 21:44 Pantoprazole (Protonix) 40 mg DAILY ORAL 07/07/16 09:00 08/06/16 08:59 07/09/16 08:58 Polyethylene Glycol (Miralax) 17 gm DAILYPRN PRN ORAL Constipation 07/06/16 21:45 08/05/16 21:44 Temazepam (Restoril) 15 mg HSPRN PRN ORAL Insomnia 07/06/16 21:45 07/13/16 21:44 GO BONILLA Jul 09, 2016 12:58
--- NOTE | 2016-07-09 17:09 | Discharge Summary ---
Discharge Summary Hospital Course Date of Admission Jul 06, 2016 at 20:18 Date of Discharge Jul 09, 2016 at 12:56 Admitting Diagnosis ACS HPI Yfn Chand is a 76 year old male who was admitted on Jul 06, 2016 at 20:18 for Acute Coronary Syndrome Hospital Course [id number] Discharge Discharge Disposition Patient was discharged to Home (01) Discharge Diagnoses: Janet Cota NP Jul 09, 2016 17:09
--- NOTE | 2016-07-09 22:48 | Discharge Summary 2 SIG ---
DATE OF ADMISSION: 07/06/2016 DATE OF DISCHARGE: 07/09/2016 [employer]: Pierre Houston M.D. BRIEF HOSPITAL COURSE: The patient is a 76-year-old male with history of coronary artery disease and VA in the past, presented to ED complaining of chest pain that started a day prior, that occurred while the patient was at rest. Pain was located to be midsternal with pressure-like intensity, 8/10 and nonradiating. He was given aspirin and nitroglycerin by EMS with no resolution of pain. On evaluation at ED, EKG showed normal sinus rhythm with no acute ischemic changes. Laboratories showed negative troponin. Due to his prior history of coronary artery disease, the patient was admitted to telemetry for further evaluation and management. He was seen by Dr. Houston. Cardiac troponins were negative. Echocardiogram done showed ejection fraction of 60% to 65% with normal left ventricular size, function and wall motion. He underwent treadmill stress test, results were nonischemic, although was not able to complete the test. He was ordered adenosine Cardiolite stress test, however, refused. He was asking for more Dilaudid. The patient was then discharged home to follow up with primary care physician. DISCHARGE DIAGNOSES: 1. Coronary artery disease. 2. Costochondritis. 3. Gastroesophageal reflux disease. Wendy Neal M.D. I have been assigned to dictate discharge summary on this account and I was not involved in the patient's management. Janet Cota N.P. DR: BEVERLY JOB#: [id number] CC: MAXWE[facility]
== END 2016-07-09 12:56 | disposition home or self-care (01) | DRG 206 ==
LOC: ENRESERVDT → ENRESERVTM → EDBD 18:27 → EMR 20:00 → 2E 20:18 → EDBEDREQ 22:27
DX: M94.0 Chondrocostal junction syndrome [Tietze] (principal); I10 Essential (primary) hypertension; I25.2 Old myocardial infarction; I25.10 Atherosclerotic heart disease of native coronary artery without angina pectoris; K21.9 Gastro-esophageal reflux disease without esophagitis; F17.200 Nicotine dependence, unspecified, uncomplicated; Z98.61 Coronary angioplasty status; Z91.041 Radiographic dye allergy status
CPT/HCPCS: 36415; 71010; 80053; 80061; 82550; 82553; 83880; 84443; 84484; 85025; 85610; 85730; 86140; 93005; 93017; 93306; 94664; J2405